=== PATIENT | female | born 1980 | race Asian ===

== ENCOUNTER 2018-01-11 13:26 | Emergency (ER) | payer OTHER ==
[~2018-01-11] VITALS: Ht 157.5 cm; Wt 42.2 kg
[~2018-01-11 13:26] MED LIST: PREN-385 PO
[2018-01-11 13:32] VITALS: BP 114/71
--- NOTE | 2018-01-11 13:45 | NUR ---
PT. CAME INTO THE ED DUE TO VAGINAL BLEEDING SINCE TODAY . PT. STATES " I STARTED BLEEDING THIS MORNING WHEN I WENT PEE, BUT THE BLEEDING HAS DECREASED". PT. DENIES ANY ABD PAIN OR CRAMPING AT THIS TIME. RR EVEN AND UNLABORED. PT. IS [id number]. PT. DENIES HAVING ANY CARE, PT. STATES " I WAS SUPPOSE TO HAVE MY FIRST APPT WITH MY DOCTOR THIS WEDNESDAY BUT I STARTED BLEEDING". PT. DENIES ANY VAGINAL DISCHARGE AT THIS TIME. ER MD NOTIFIED. WILL CONTINUE TO MONITOR.
--- NOTE | 2018-01-11 14:27 | NUR ---
PT. RESTING COMFORTABLY IN BED, RR EVEN AND UNLABORED. AT BEDSIDE. WILL CONTINUE TO MONITOR.
--- NOTE | 2018-01-11 14:50 | NUR ---
PT TO ULTRASOUND VIA WHEELCHAIR
[2018-01-11 15:26] LABS: APPEARANCE,URINE CLEAR (CLEAR); BILIRUBIN,URINE NEGATIVE (NEGATIVE); BLOOD, URINE 1+ (NEGATIVE); COLOR,URINE YELLOW (YELLOW); LEUKOCYTE ESTERASE ,URINE NEGATIVE (NEGATIVE); NITRITE, URINE NEGATIVE (NEGATIVE); UGLUCOSE NEGATIVE (NEGATIVE)
--- NOTE | 2018-01-11 15:52 | NUR ---
pt. resting comfortbly in bed , rr even and unlabored. at bedside. will continue to monitor.
[2018-01-11 15:57] LABS: BASOPHILS % (AUTO) 0.5 % (0.0-2.0); EOSINOPHILS % (AUTO) 0.4 % (0.0-4.0); HEMATOCRIT 37.8 % (36-48); HEMOGLOBIN 12.3 g/dL (12.0-16.0); MEAN CORPUSCULAR HEMOGLOBIN 28 pg (27-31); MEAN CORPUSCULAR HGB CONC 33 g/dL (33-37); MONOCYTES # (AUTO) 0.4 K/uL (0.8-1.0); MONOCYTES % (AUTO) 6.1 % (1.7-9.3); NEUTROPHILS # (AUTO) 5.3 K/uL (1.8-7.7); PLATELET COUNT (AUTO) 221 K/uL (140-450); RED BLOOD CELL COUNT(AUTO) 4.39 MIL/uL (4.20-5.40); RED CELL DISTRIBUTION WIDTH 14.9 % (11.6-13.7); WHITE BLOOD COUNT (AUTO) 6.8 K/uL (4.8-10.8)
[2018-01-11 15:58] LABS: RBC,URINE 3-10 (FEW) /HPF (0-5); WBC,URINE 0-5 (RARE) /HPF (0-5)
[2018-01-11 16:54] VITALS: BP 113/72
--- NOTE | 2018-01-11 16:54 | NUR ---
Patient discharged with v/s stable. Written and verbal after care instructions given and explained. Patient verbalized understanding. Ambulatory with steady gait. All questions addressed prior to discharge. Advised to follow up with PMD.
== END 2018-01-11 16:54 | disposition home or self-care (01) ==
LOC: MED 13:26
DX: O20.0 Threatened abortion (principal); Z3A.01 Less than 8 weeks gestation of pregnancy
CPT/HCPCS: 36415; 76817; 81001; 81025; 84702; 85025; 86900; 86901; 99285; Q0092